=== PATIENT | female | born 1995 | race Caucasian/White ===

== ENCOUNTER 2018-01-26 06:13 | Emergency (ER) | payer BC ==
[2018-01-26] MEDS: IBUPROFEN 800 MG TAB PO (07:29)
== END 2018-01-26 07:43 | disposition home or self-care (01) ==
LOC: FTE 06:13
DX: J02.9 Acute pharyngitis, unspecified (principal)
CPT/HCPCS: 99283; Z7502

== ENCOUNTER 2019-04-30 15:27 | Emergency (ER) | payer SELFPAY, BC ==
[2019-04-30] MEDS: IBUPROFEN 800 MG TAB PO (16:13)
== END 2019-04-30 16:23 | disposition home or self-care (01) ==
LOC: FTE 15:27
DX: S83.92XA Sprain of unspecified site of left knee, initial encounter (principal); X50.1XXA Overexertion from prolonged static or awkward postures, initial encounter; Y92.9 Unspecified place or not applicable
CPT/HCPCS: 29505; 99282-25